=== PATIENT | female | born 1980 | race Caucasian/White ===

== ENCOUNTER → 2020-07-21 03:49 | Outpatient (CLI) | payer BC, MEDICAID, SELFPAY ==
[2020-07-22 18:18] LABS: SARS-CoV-2 RNA PCR Negative
== END ==
PROVIDERS: PCP Family Medicine; Visit Provider Obstetrics & Gynecology
DX: Z01.812 Encounter for preprocedural laboratory examination (principal); Z20.822 Contact with and (suspected) exposure to COVID-19
CPT/HCPCS: C9803; U0003; U0005

== ENCOUNTER 2020-07-22 10:31 | Outpatient (CLI) | payer BC, MEDICAID, SELFPAY ==
--- NOTE | 2020-07-22 10:34 | ECG_ITS ---
Measurements Intervals [place] Rate: 93 P: 148 WA: 183 QRS: 56 QRSD: 97 T: 142 QT: 360 QTc: 448 Interpretive Statements SINUS RHYTHM LIMB LEAD REVERSAL LEFT ATRIAL ENLARGEMENT DELAYED PRECORDIAL R/S TRANSITION BASELINE ARTIFACT- I, III, AVL BORDERLINE ECG Electronically Signed On 07-22-2020 10:53:49 CLIENT SERVER PROGRAMMER by Sharif Paniagua D.O.
== END 2020-07-22 10:32 | disposition home or self-care (01) ==
LOC: ANHSURGERY 10:34
PROVIDERS: PCP Family Medicine; Visit Provider Obstetrics & Gynecology
DX: Z01.818 Encounter for other preprocedural examination (principal); N83.209 Unspecified ovarian cyst, unspecified side; F17.210 Nicotine dependence, cigarettes, uncomplicated
CPT/HCPCS: 36415; 86850; 86900; 86901; 93005

== ENCOUNTER 2020-07-24 01:32 | Day surgery (SDC) | payer BC, MEDICAID, SELFPAY ==
[2020-07-21 12:29] VITALS: BMI 31.0
--- NOTE | 2020-07-21 15:05 | P.HP_ITS ---
H&P: HPI History of Present Illness Date/Time: 07/21/20 15:05 Chief Complaint: complex l ovcyst Narrative: Michelle Berg is a 40 year old female he is admitted for laparoscopic left ovarian cystectomy/ possible left salpingo-oophorectomy. She has pain discomfort and dyspareunia. She is status post hysterectomy. She underwent ultrasound which showed a complex left ovarian cyst. Risks and benefits reviewed. She received the [employer] handout entitled laparoscopy. She asked to proceed Review of Systems Review of Systems: All systems reviewed & are unremarkable except as noted in HPI and below [facility] Social History Social History Smoking packs per day: 1 Smoking cigarettes per day: 20.0 Years smoked: 20 Smoking pack-years: 20.00 Smoking status: Current every day smoker Tobacco type: cigarettes Alcohol intake: current Spiritual care concerns: No Meds Home Medications and Allergies Home Medications Medication Instructions Recorded Confirmed Type cetirizine [Zyrtec] 10 mg PO DAILY 07/21/20 07/21/20 History doxepin 10 mg PO HS 07/21/20 07/21/20 History multivitamin 1 tablet PO DAILY 07/21/20 07/21/20 History pseudoephedrine-guaifenesin 1 tablet PO BID 07/21/20 07/21/20 History [Mucinex D] tizanidine 4 mg PO Q6H PRN 07/21/20 07/21/20 History venlafaxine 150 mg PO DAILY 07/21/20 07/21/20 History vitamin E 400 unit PO DAILY 07/21/20 07/21/20 History Allergies Allergy/AdvReac Type Severity Reaction Status Date / Time No Known Allergies Allergy Verified 07/21/20 12:24 Exam Const: General: no acute distress Eyes: General: appearance normal, both eyes and all related structures Neck: Neck: supple and no JVD Thyroid: thyroid normal Resp: Effort & Inspection: normal respiratory effort Auscultation: clear to auscultation bilaterally Cardio: Rate: regular rate Rhythm: regular rhythm GI: Inspection: non-distended GI Palp: Yes Soft to palpation, No Tenderness to palpation present (GI) and No Guarding due to palpation present (GI) Auscultation: normal bowel sounds : General: Yes bladder normal to inspection External Female Exam: normal external appearance Speculum Exam - Vagina: normal appearance of the vagina Speculum Exam - Cervix: Cervix absent Bimanual exam- vagina & uterus: uterus absent Bimanual Exam- Adnexa, other: Adnexal mass present on the left tender Skin: General skin exam: no rashes or lesions noted Extrem: General: normal to inspection and no edema Psych: Mental Status: mental status grossly normal Affect: normal affect Assessment and Plan Additional Plan impression: Complex left ovarian cyst in a patient status post hysterectomy Plan: Laparoscopic left cystectomy / possible LS0
[2020-07-24] VITALS (8 sets, daily range): BP systolic 123–153; BP diastolic 80–93; PULSE 72–99; RESP 13–19; TEMP 36.3–36.7; O2SAT 95–100
--- NOTE | 2020-07-24 06:23 | WPDHPUPDATE1 ---
History and Physical Update Update Date/Time: 07/24/20 06:23 History and Physical has been reviewed, including an updated exam of the patient. There are NO changes in the patient's condition. Risks, benefits, and alternatives have been discussed and questions answered. Patient agrees to proceed with procedure.
[2020-07-24] MEDS: LACTATED RINGERS 1,000 ML 30 ML IV CONT (11:07)
[2020-07-24] MEDS: KETOROLAC 15 MG/ML VIAL (*BKC) IV PUSH (11:10)
[2020-07-24] MEDS: ACETAMINOPHEN 500 MG TABLET 1000 MG PO (11:10)
--- NOTE | 2020-07-24 11:49 | P.PNAN_ITS ---
Anes - Initial Pre Proc Eval Procedure: Operation Date: 07/24/20 12:30 Proposed Procedures p Laparoscopic Left Ovarian Cystectomy, Possible Left Salpingo-Oophorectomy - Venkata Ivory MD Date/Time: 07/24/20 11:49 Surgeon: Venkata Ivory MD Pre Op Diagnosis: Pelvic Pain, Left Ovarian Cyst Patient Data Age: 40 Gender: F Height: 5 ft 3 in Weight: 79 kg Last Vital Signs Temp 97.4 F L 07/24/20 10:45 Pulse 99 07/24/20 10:45 Resp 16 07/24/20 10:45 BP 123/80 07/24/20 10:45 Pulse Ox 98 07/24/20 10:45 Allergies Allergy/AdvReac Type Severity Reaction Status Date / Time No Known Allergies Allergy Verified 07/24/20 10:39 Home Medications Medication Instructions Recorded Confirmed Type cetirizine [Zyrtec] 10 mg PO DAILY 07/21/20 07/24/20 History doxepin 10 mg PO HS 07/21/20 07/24/20 History multivitamin 1 tablet PO DAILY 07/21/20 07/24/20 History pseudoephedrine-guaifenesin 1 tablet PO BID 07/21/20 07/24/20 History [Mucinex D] tizanidine 4 mg PO Q6H PRN 07/21/20 07/24/20 History venlafaxine 150 mg PO DAILY 07/21/20 07/24/20 History vitamin E 400 unit PO DAILY 07/21/20 07/24/20 History Patient hx anesthesia problems: none Family hx anesthesia problems: none [facility] Past Medical History Medical History (Updated 07/24/20 @ 11:49 by Eleazar Jama MD) Arthritis Depression Social History Social History Smoking packs per day: 1 Smoking cigarettes per day: 20.0 Years smoked: 20 Smoking pack-years: 20.00 Smoking status: Current every day smoker Tobacco type: cigarettes Alcohol intake: current Living arrangements: with family Spiritual care concerns: No Anes - Eval Final PreProcedure Day of Procedure 07/24/20 11:49 Patient weight: normal Heart: regular rate and rhythm Lungs: clear to auscultation Airway: Mallampati scale class II Neurological: alert and oriented Last oral intake: >/= 8 hours ASA classification: II Emergent: no Anesthetic plan: proceed Anesthesia type and monitoring: general ETT and standard monitoring Informed Consent: The patient's anesthetic plan and its attendant risks and benefits were discussed with the patient/family/POA. Questions were solicited and answers provided to the satisfaction of the patient/family/POA.
--- NOTE | 2020-07-24 14:11 | PM.PROC ---
Procedure Note - Detailed Date of procedure: 07/24/20 Pre-op diagnosis: Pelvic Pain, Left Ovarian Cyst Surgeon: Venkata Ivory MD Postop diagnosis: Pelvic pain/left ovarian cyst/adhesions Procedure: Laparoscopic left salpingo-oophorectomy and lysis of adhesions Anesthesia: General endotracheal Blood loss: 5cc Complications: None Findings: Absent uterus and right ovary and tube. Complex left ovarian cyst with pelvic adhesions Description of procedure: The patient was prepped and draped in the normal sterile fashion placed in dorsal lithotomy position. Under excellent general endotracheal anesthesia a sponge stick was placed in the vagina and the bladder drained of clear urine. The weighted speculum was removed and the sponge stick remain. Gloves were changed. Supraumbilical incision was made the Veress needle passed and abdomen filled with CO2 gas [id number]. The 5mm trocar advanced under direct visualization assuring no injury. The patient placed in Trendelenburg and a suprapubic incision made. The 5mm trocar was advanced in the abdomen under direct visualization assuring no injury. Left lower quadrant incision made and the 10mm trocar advanced under direct visualization assuring no injury. Adhesions were seen over the left ovary and tube and these were sharply dissected being careful to avoid injury to overlying bowel and other important structures. Once the infundibulopelvic structure in skeletonized was clamped burned and cut with the LigaSure. This was placed in an Endo-Catch removed through the left lower quadrant. Irrigation undertaken to clear the vaginal cuff and pelvis appeared completely clear after this and irrigation was undertaken until clear. The lower sites removed. The gas removed from the abdomen. The incisions closed with 4 O Monocryl and glue in the upper incision closed as well. The patient was awakened. All sponge, needle, instrument counts were correct. There were no immediate complications
[2020-07-24] MEDS: fentaNYL CITRATE INJ (*CRX) 100 MCG/2 ML VIAL 25 MCG IV PUSH ×3 (14:45→15:05)
[2020-07-24] MEDS: oxyCODONE HCL (*CRX) 5 MG TAB IR PO (15:55)
== END 2020-07-24 16:40 | disposition home or self-care (01) ==
PROVIDERS: PCP Family Medicine; Visit Provider Obstetrics & Gynecology
PROC: (CPT 49320; principal; 2020-07-24 12:30)
DX: N83.12 Corpus luteum cyst of left ovary (principal); N70.11 Chronic salpingitis; R10.2 Pelvic and perineal pain; N73.6 Female pelvic peritoneal adhesions (postinfective); F32.9 Major depressive disorder, single episode, unspecified; F17.210 Nicotine dependence, cigarettes, uncomplicated
CPT/HCPCS: 58661; 36415; 86850; 86900; 86901; 88305; 93005; A9270; C9803; J0330; J1100; J1885; J2250; J2405; J2704; J3010; J7120; U0003; U0005